=== PATIENT | female | born 1940 | race African-American/Black ===

== ENCOUNTER 2021-02-20 07:57 | Outpatient (CLI) | payer MEDICARE, BC | END 2021-02-20 07:58 | disposition home or self-care (01) | LOC: BICMAMMO 07:57 | PROVIDERS: ATTEND Family Medicine | DX: Z12.31 Encounter for screening mammogram for malignant neoplasm of breast (principal); Z80.3 Family history of malignant neoplasm of breast; R92.1 Mammographic calcification found on diagnostic imaging of breast; N63.22 Unspecified lump in the left breast, upper inner quadrant | CPT/HCPCS: 77063; 77067 ==

== ENCOUNTER 2021-02-22 14:05 | Outpatient (CLI) | payer MEDICARE, BC | END 2021-02-22 14:06 | disposition home or self-care (01) | LOC: BICRAD 14:05 | PROVIDERS: ATTEND Podiatrist | DX: M76.61 Achilles tendinitis, right leg (principal); M77.31 Calcaneal spur, right foot ==

== ENCOUNTER 2021-02-28 13:22 | Outpatient (CLI) | payer MEDICARE, BC | END 2021-02-28 13:23 | disposition home or self-care (01) | LOC: BICMAMMO 13:22 | PROVIDERS: ATTEND Family Medicine | DX: R92.8 Other abnormal and inconclusive findings on diagnostic imaging of breast (principal) | CPT/HCPCS: 76642; 77065; G0279 ==

== ENCOUNTER 2021-08-29 12:38 | Outpatient (CLI) | payer MEDICARE, BC | END 2021-08-29 12:39 | disposition home or self-care (01) | LOC: BICMAMMO 12:38 | PROVIDERS: ATTEND Family Medicine | DX: N63.20 Unspecified lump in the left breast, unspecified quadrant (principal) | CPT/HCPCS: 76642; 77065; G0279 ==

== ENCOUNTER 2022-03-01 13:15 | Outpatient (CLI) | payer MEDICARE, BC | END 2022-03-01 13:16 | disposition home or self-care (01) | LOC: BICMAMMO 13:15 | PROVIDERS: ATTEND Family Medicine | DX: Z12.31 Encounter for screening mammogram for malignant neoplasm of breast (principal); Z80.3 Family history of malignant neoplasm of breast | CPT/HCPCS: 77063; 77067 ==

== ENCOUNTER 2023-09-04 17:23 | Inpatient (IN) | payer MEDICARE ==
[2023-09-05 00:33] VITALS: BMI 36.7
[2023-09-08 13:17] VITALS: TEMP 97.7
[2023-09-08 16:30] VITALS: BP 130/69
== END 2023-09-08 16:25 | disposition home or self-care (01) | DRG 643 ==
LOC: ERS 17:23 → SURG A 22:51 → OBSVTOIN 09-05 09:29
PROVIDERS: ADMIT Student in an Organized Health Care Education/Training Program; ATTEND Internal Medicine
DX: E22.2 Syndrome of inappropriate secretion of antidiuretic hormone (principal); J18.9 Pneumonia, unspecified organism; N17.9 Acute kidney failure, unspecified; Z88.5 Allergy status to narcotic agent; Z91.048 Other nonmedicinal substance allergy status; Z79.82 Long term (current) use of aspirin; Z79.899 Other long term (current) drug therapy; I12.9 Hypertensive chronic kidney disease with stage 1 through stage 4 chronic kidney disease, or unspecified chronic kidney disease; K21.9 Gastro-esophageal reflux disease without esophagitis; Z90.49 Acquired absence of other specified parts of digestive tract; Z98.890 Other specified postprocedural states; N18.30 Chronic kidney disease, stage 3 unspecified; Z86.73 Personal history of transient ischemic attack (TIA), and cerebral infarction without residual deficits; E11.22 Type 2 diabetes mellitus with diabetic chronic kidney disease
CPT/HCPCS: 36415; 36416; 71045; 71275; 80048; 80053; 82436; 82533; 83036; 83880; 83930; 83935; 84133; 84145; 84300; 84443; 84484; 84550; 85025; 85379; 87449; 87899; 93005; 94640; G0378; J7030; J7050; Q0162; Q9967